=== PATIENT | female | born 1955 | race Caucasian/White ===

== ENCOUNTER → 2016-05-30 | Outpatient (CLI) | payer OTHER, MEDICARE ==
[~2016-05-30] MED LIST: ANT25 PO; CHOL1000 PO; CHOLTAB3 PO; CRD200 PO; CYAN100020 PO; DICL-201 PO; ESTR0.752 PO; GABA-112 PO; HYDR-5688 PO; IMD2X PO; INSDGIPEN SC; INSU32MI13 SQ; LACTCAP3 PO; LEVO75TA5 PO; LPR100 PO; LSN5 PO; METF500T5 PO; NVLGI/PEN SQ; NVLGIPEN SC; NVLNI SC; NVLRPUC SQ; OMEG10007 PO; POTA99TA PO; PRLSR20 PO; PRM/45 PO; SERT50TA PO; TIMO10TA2 PO; TRAM-10 PO; TRAZ100T29 PO; VITA400C15 PO
== END | disposition home or self-care (01) ==
LOC: C.PAPS 11:40
PROVIDERS: ATTEND Obstetrics & Gynecology
DX: Z01.419 Encounter for gynecological examination (general) (routine) without abnormal findings (principal)

== ENCOUNTER → 2016-06-27 | Outpatient (CLI) | payer OTHER, MEDICARE ==
--- NOTE | 2016-07-07 14:00 | MAMMOGRAPHY REPORT ---
THIS REPORT HAS BEEN AMENDED. BILATERAL DIGITAL SCREENING MAMMOGRAM TOMOSYNTHESIS WITH CAD: 06/27/2016 CLINICAL HISTORY: Routine screening examination. TECHNIQUE: Bilateral breast tomosynthesis in addition to standard 2D mammography was performed. Curr ent study was also evaluated with a Computer Aided Detection (CAD) system. COMPARISON: No prior exams were available for comparison. BREAST COMPOSITION: There are scattered areas of fibroglandular density in both breasts. FINDINGS: There is a 4.3 mm focal asymmetry in the 6:00 posterior right breast, and a 5.8 mm lobula jewell mass in the upper outer middle one third of the left breast, for which comparison to prior outsi de mammograms is needed to assess stability. If the outside exams are not obtained in a timely jacques er, additional spot compression tomosynthesis HD views and possibly ultrasound are recommended for f urther characterization. No other suspicious mass, architectural distortion or cluster of microcalcifications is seen bilater ally. IMPRESSION: ACR BI-RADS CATEGORY 0: INCOMPLETE EVALUATION: NEED ADDITIONAL IMAGING EVALUATION The 4.3 mm focal asymmetry in the 6:00 right breast and 5.8 mm lobulated mass in the upper outer lef t breast need comparison to prior outside mammograms. If they are not obtained in a timely manner, additional imaging evaluation is needed. The patient will be called to schedule an appointment. Approximately 10% of breast cancers are not detected with mammography. A negative mammographic repor t should not delay biopsy if a clinically suggestive mass is present. Pamela Beal M.D. ay/:07/07/2016 08:36:06 [employer] Project Manager: Ashley POPE(R)(M), [facility] letter sent: Need Priors 0 BI-RADS Code: ACR BI-RADS Category 0: Incomplete Evaluation: Need Additional Imaging Evaluation AMENDMENT: 07/09/2016 Pamela Beal M.D. Prior outside mammograms from [facility] dated 06/04/2012, 06/06/2013 and 06/09/2014 became available for review. The 4.3 mm asymmetry in the 6:00 right breast appears very similar to the and 06/06/2013 exams. With 2 years of stability this is considered benign. The 5 mm circu mscribed lobulated mass in the upper outer middle one third of the left breast has been present dati ng back to at least 06/04/2012, also considered benign. No new suspicious mass, focal area of archi tectural distortion, developing asymmetry or suspicious calcifications are seen bilaterally. Recomm end follow-up in 1 year for next annual screening mammogram. Amended BI-RADS: ACR BI-RADS Category 2: Benign letter sent: Normal 04/28
== END | disposition home or self-care (01) ==
LOC: C.MAMM 14:14
PROVIDERS: ATTEND Obstetrics & Gynecology
DX: Z12.31 Encounter for screening mammogram for malignant neoplasm of breast (principal); N64.89 Other specified disorders of breast; N63 Unspecified lump in breast

== ENCOUNTER → 2016-08-11 | Outpatient (CLI) | payer OTHER, MEDICARE ==
[2016-08-11 12:33] LABS: BASO % 0.6 %; BASO ABS # 0.04 K/uL (0-0.2); COMPLETE YES; EOS % 5.4 %; HEMATOCRIT 35.7 % (37-47); IG% 0.3 %; LYMPH % 34.9 %; LYMPH ABS # 2.34 K/uL (1.2-3.4); MEAN CELL VOLUME 88.8 fL (80-100); MEAN CORPUSCULAR HEMOGLOBIN 28.1 pg (25-34); MEAN CORPUSCULAR HGB CONC 31.7 g/dl (32-36); MEAN PLATELET VOLUME 10.8 fL (7.4-10.4); MONO % 7.5 %; NEUT % 51.3 %; PLATELET COUNT 223 K/uL (130-400); RED BLOOD COUNT 4.02 M/uL (4.2-5.4)
[2016-08-11 12:48] LABS: URINE APPEARANCE CLOUDY (CLEAR); URINE BILIRUBIN NEG (NEG); URINE COLOR DK YELLOW; URINE EPITHELIAL CELL AUTO >30 /lpf (0-5); URINE NITRITE POS (NEG); URINE SPECIFIC GRAVITY 1.023 (1.000-1.030); UROBILINOGEN NEG (NEG); ZZUR CULT IF INDIC CLEAN CATCH YES
[2016-08-11 12:52] LABS: MANUAL MICROSCOPIC REQUIRED? NO; REVIEW REQ? YES
== END | disposition home or self-care (01) ==
LOC: C.LABPBG 10:38
PROVIDERS: ATTEND Physician Assistant
DX: R39.9 Unspecified symptoms and signs involving the genitourinary system (principal); E03.9 Hypothyroidism, unspecified; N39.0 Urinary tract infection, site not specified

== ENCOUNTER → 2016-09-30 | Outpatient (CLI) | payer OTHER, MEDICARE ==
--- NOTE | 2016-09-30 11:19 | DIAGNOSTIC IMAGING REPORT ---
L-SPINE MIN 4 VIEWS ROUTINE CLINICAL HISTORY: Chronic low back pain radiating into both lower extremities. Flank pain COMPARISON: None FINDINGS: Alignment of the lumbar spine is anatomic. Vertebral body heights are maintained. There is moderate disc space narrowing with osteophytosis at L2-L3. There are cholecystectomy clips. There is no fracture or suspicious lesion. There is mild to moderate multilevel facet arthrosis. IMPRESSION: 1. No lumbar spine fracture or subluxation. 2. [id number] multilevel degenerative disc disease, most pronounced at L2-L3. Electronically signed by: Solitario Bentley M.D. 09/30/2016 11:18 AM Dictated Date/Time: 09/30/2016 11:16 AM
--- NOTE | 2016-09-30 12:25 | DIAGNOSTIC IMAGING REPORT ---
RENAL ULTRASOUND CLINICAL HISTORY: Flank pain. COMPARISON STUDY: CT of the abdomen and pelvis June 28, 2013 and renal ultrasound July 06, 2013. TECHNIQUE: Sonography of the kidneys and the urinary bladder was performed. FINDINGS: Increased hepatic echogenicity reflects fatty infiltration. There is no hydronephrosis. The right kidney measures 10.1 cm in maximal dimension and the left measures 10 cm. No renal masses or calculi are identified. There is a 1.1 cm cyst within lower pole of the right kidney. Neither ureteral jet was identified. IMPRESSION: 1. No hydronephrosis. 2. 1.1 cm right renal cyst. Otherwise, normal sonographic appearance of the kidneys. 3. Fatty liver. Electronically signed by: Solitario Bentley M.D. 09/30/2016 12:24 PM Dictated Date/Time: 09/30/2016 12:21 PM
== END | disposition home or self-care (01) ==
LOC: C.ULTR 10:46
PROVIDERS: ATTEND Physician Assistant
DX: R10.9 Unspecified abdominal pain (principal)

== ENCOUNTER → 2016-11-07 | Outpatient (CLI) | payer OTHER, MEDICARE ==
[2016-11-07 12:41] LABS: BASO % 0.8 %; BASO ABS # 0.04 K/uL (0-0.2); COMPLETE YES; EOS % 4.9 %; HEMATOCRIT 35.2 % (37-47); IG% 0.2 %; LYMPH ABS # 1.75 K/uL (1.2-3.4); MEAN CELL VOLUME 87.6 fL (80-100); MEAN CORPUSCULAR HEMOGLOBIN 27.9 pg (25-34); MEAN CORPUSCULAR HGB CONC 31.8 g/dl (32-36); MEAN PLATELET VOLUME 10.7 fL (7.4-10.4); MONO % 7.6 %; NEUT % 52.5 %; PLATELET COUNT 168 K/uL (130-400); RED BLOOD COUNT 4.02 M/uL (4.2-5.4); WHITE BLOOD COUNT 5.14 K/uL (4.8-10.8)
== END | disposition home or self-care (01) ==
LOC: C.LABPBG 08:19
PROVIDERS: ATTEND Internal Medicine Hematology & Oncology
DX: D64.9 Anemia, unspecified (principal)

== ENCOUNTER → 2016-11-17 | Outpatient (CLI) | payer OTHER, MEDICARE | END | disposition home or self-care (01) | LOC: C.LABPBG 11:17 | PROVIDERS: ATTEND Internal Medicine | DX: Z11.59 Encounter for screening for other viral diseases (principal) ==

== ENCOUNTER → 2017-01-08 | Outpatient (CLI) | payer OTHER, MEDICARE | END | disposition home or self-care (01) | LOC: C.LABBC 11:48 | PROVIDERS: ATTEND Psychiatry & Neurology Neurology | DX: R41.89 Other symptoms and signs involving cognitive functions and awareness (principal); R26.89 Other abnormalities of gait and mobility ==

== ENCOUNTER → 2017-01-09 | Outpatient (CLI) | payer OTHER, MEDICARE ==
--- NOTE | 2017-01-09 17:26 | DIAGNOSTIC IMAGING REPORT ---
MRI OF THE BRAIN WITHOUT CONTRAST CLINICAL HISTORY: R41.89 Cognitive jenooxhV70.89 poor balance, dizziness. COMPARISON STUDY: Noncontrast head CT dated 06/17/2015 FINDINGS: Sagittal T1, axial diffusion, proton density and T2 weighted axial, coronal FLAIR, and axial T1-weighted images were acquired. No intra or extra-axial mass lesions are visualized Axial diffusion-weighted images reveal no evidence of acute or subacute infarction. There is no evidence of ventricular dilatation. Proton density T2-weighted and FLAIR images reveal a few tiny foci of increased T2 signal within the white matter, likely on a small vessel basis. There are no abnormal flow voids. Minor inflammatory changes within the mastoids are suspected. IMPRESSION: 1. No acute intracranial findings 2. No evidence of intracranial mass 3. No evidence of acute or subacute infarction 4. No evidence of hydrocephalus Electronically signed by: Dmitri Quinteros M.D. 01/09/2017 5:25 PM Dictated Date/Time: 01/09/2017 5:23 PM
== END | disposition home or self-care (01) ==
LOC: C.MRIBC 16:36
PROVIDERS: ATTEND Psychiatry & Neurology Neurology
DX: R41.89 Other symptoms and signs involving cognitive functions and awareness (principal); R26.89 Other abnormalities of gait and mobility

== ENCOUNTER → 2017-02-06 | Outpatient (CLI) | payer OTHER, MEDICARE ==
--- NOTE | 2017-02-06 12:36 | DIAGNOSTIC IMAGING REPORT ---
AP PELVIS AND RIGHT HIP 3 VIEWS CLINICAL HISTORY: M25.551 Hip pain, right COMPARISON STUDY: No previous studies for comparison. FINDINGS: No fractures are visualized. The joint space appears well-preserved for age. There are no erosive or destructive changes. IMPRESSION: Normal conventional radiographic evaluation of the right hip for age Electronically signed by: Dmitri Quinteros M.D. 02/06/2017 12:35 PM Dictated Date/Time: 02/06/2017 12:34 PM
[2017-02-06 14:05] LABS: URINE APPEARANCE CLEAR (CLEAR); URINE BILIRUBIN NEG (NEG); URINE COLOR YELLOW; URINE EPITHELIAL CELL AUTO 20-30 /lpf (0-5); URINE NITRITE NEG (NEG); URINE SPECIFIC GRAVITY 1.016 (1.000-1.030); UROBILINOGEN NEG (NEG)
[2017-02-06 14:07] LABS: MANUAL MICROSCOPIC REQUIRED? NO; REVIEW REQ? NO
== END | disposition home or self-care (01) ==
LOC: C.RADBC 12:03
PROVIDERS: ATTEND Physician Assistant
DX: M25.551 Pain in right hip (principal); R10.9 Unspecified abdominal pain

== ENCOUNTER → 2017-05-15 | Outpatient (CLI) | payer OTHER, MEDICARE ==
[2017-05-15 12:26] LABS: BASO % 0.9 %; BASO ABS # 0.05 K/uL (0-0.2); EOS ABS # 0.29 K/uL (0-0.5); HEMATOCRIT 37.2 % (37-47); IG# 0.01 K/uL (0.00-0.02); LYMPH % 35.5 %; LYMPH ABS # 2.07 K/uL (1.2-3.4); MEAN CELL VOLUME 88.4 fL (80-100); MEAN CORPUSCULAR HEMOGLOBIN 28.5 pg (25-34); MEAN CORPUSCULAR HGB CONC 32.3 g/dl (32-36); MEAN PLATELET VOLUME 11.6 fL (7.4-10.4); MONO % 6.2 %; MONO ABS # 0.36 K/uL (0.11-0.59); NEUT % 52.2 %; NEUT ABS # 3.05 K/uL (1.4-6.5); PLATELET COUNT 184 K/uL (130-400); RED CELL DISTRIBUTION WIDTH CV 15.7 % (11.5-14.5); WHITE BLOOD COUNT 5.83 K/uL (4.8-10.8)
[2017-05-15 12:41] LABS: RETIC COUNT % 1.3 % (0.5-2.0)
[2017-05-15 12:42] LABS: HEMOGLOBIN A1C 5.5 % (4.5-5.6)
[2017-05-15 15:39] LABS: ALBUMIN 3.8 gm/dl (3.4-5.0); ALT/SGPT 22 U/L (12-78); BLOOD UREA NITROGEN 18 mg/dl (7-18); CALCIUM 9.6 mg/dl (8.5-10.1); CARBON DIOXIDE 23 mmol/L (21-32); CREATININE 0.79 mg/dl (0.60-1.20); GLUCOSE 112 mg/dl (70-99); POTASSIUM 4.1 mmol/L (3.5-5.1); SODIUM 140 mmol/L (136-145)
[2017-05-15 15:52] LABS: ALKALINE PHOSPHATASE 54 U/L (45-117); AST/SGOT 16 U/L (15-37); CHOLESTEROL 206 mg/dl (0-200); LDL CHOLESTEROL CALCULATED 108 mg/dl; TOTAL PROTEIN 6.7 gm/dl (6.4-8.2)
== END | disposition home or self-care (01) ==
LOC: C.LABPBG 10:03
PROVIDERS: ATTEND Internal Medicine Hematology & Oncology
DX: M15.9 Polyosteoarthritis, unspecified (principal); D64.9 Anemia, unspecified

== ENCOUNTER → 2017-06-12 | Outpatient (CLI) | payer OTHER, MEDICARE ==
[2017-06-12 15:35] LABS: BASO % 0.1 %; BASO ABS # 0.01 K/uL (0-0.2); HEMOGLOBIN 11.9 g/dL (12.0-16.0); IG# 0.06 K/uL (0.00-0.02); LYMPH % 10.9 %; LYMPH ABS # 1.46 K/uL (1.2-3.4); MEAN CELL VOLUME 86.1 fL (80-100); MEAN CORPUSCULAR HEMOGLOBIN 28.5 pg (25-34); MEAN CORPUSCULAR HGB CONC 33.1 g/dl (32-36); MEAN PLATELET VOLUME 10.8 fL (7.4-10.4); MONO % 6.1 %; MONO ABS # 0.82 K/uL (0.11-0.59); NEUT % 82.5 %; NEUT ABS # 11.08 K/uL (1.4-6.5); PLATELET COUNT 231 K/uL (130-400); RED CELL DISTRIBUTION WIDTH CV 15.3 % (11.5-14.5); RED CELL DISTRIBUTION WIDTH SD 48.2 fL (36.4-46.3); WHITE BLOOD COUNT 13.43 K/uL (4.8-10.8)
== END | disposition home or self-care (01) ==
LOC: C.LAB1850 14:12
PROVIDERS: ATTEND Obstetrics & Gynecology
DX: R10.2 Pelvic and perineal pain (principal)

== ENCOUNTER → 2017-07-09 | Outpatient (CLI) | payer OTHER, MEDICARE | END | disposition home or self-care (01) | LOC: C.LABSPEC 15:38 | PROVIDERS: ATTEND Obstetrics & Gynecology | DX: R39.9 Unspecified symptoms and signs involving the genitourinary system (principal) ==

== ENCOUNTER → 2017-07-13 | Outpatient (CLI) | payer OTHER, MEDICARE ==
--- NOTE | 2017-07-14 14:58 | MAMMOGRAPHY REPORT ---
BILATERAL DIGITAL SCREENING MAMMOGRAM TOMOSYNTHESIS WITH CAD: 07/13/2017 CLINICAL HISTORY: Routine screening. Patient has no complaints. TECHNIQUE: Breast tomosynthesis in addition to standard 2D mammography was performed. Current study was also evaluated with a Computer Aided Detection (CAD) system. COMPARISON: Comparison is made to exam dated: 06/27/2016 mammogram - [facility]. A lso prior outside mammograms dated 06/09/2014, 06/06/2013, 06/04/2012. BREAST COMPOSITION: There are scattered areas of fibroglandular density in both breasts. FINDINGS: No suspicious masses, calcifications, or areas of architectural distortion are noted in ei ther breast. There has been no significant interval change compared to prior exams. IMPRESSION: ACR BI-RADS CATEGORY 1: NEGATIVE There is no mammographic evidence of malignancy. A 1 year screening mammogram is recommended. The pa tient will receive written notification of the results. Approximately 10% of breast cancers are not detected with mammography. A negative mammographic report should not delay biopsy if a clinically suggestive mass is present. Zunilda Bowers M.D. ah/:07/13/2017 15:27:47 Sales Clerk: Dana POPE(Margarita)(M), [facility] letter sent: Normal 1/2 BI-RADS Code: ACR BI-RADS Category 1: Negative
== END | disposition home or self-care (01) ==
LOC: C.MAMM 14:45
PROVIDERS: ATTEND Obstetrics & Gynecology
DX: Z12.31 Encounter for screening mammogram for malignant neoplasm of breast (principal)

== ENCOUNTER → 2017-07-17 | Outpatient (CLI) | payer OTHER, MEDICARE ==
[~2017-07-17] MED LIST changes: +OPTIRAY 320 IV PRN
--- NOTE | 2017-07-17 12:09 | DIAGNOSTIC IMAGING REPORT ---
ABDOMEN AND PELVIS CT WITH IV AND ORAL CONTRAST CT DOSE: 408.29 mGy.cm HISTORY: D64.9 IcgarjB38.9 Flank painR10.31 Right lower quadrant abdominal pain. TECHNIQUE: Multiaxial CT images of the abdomen and pelvis were performed following the use of intravenous and oral contrast. A dose lowering technique was utilized adhering to the principles of ALARA. COMPARISON STUDY: Abdomen and pelvis CT 06/28/2013. FINDINGS: The lung bases are clear. No pneumoperitoneum. No pneumatosis. Mild hepatic steatosis. No hepatic or splenic masses. Cholecystectomy. The pancreas and adrenal glands are unremarkable. No hydronephrosis. Stable 1 cm hypodense lesion within the lower pole the right kidney. The stability favors a cyst. The bladder is not well-distended. This may account for the mild bladder wall thickening. The uterus is surgically absent. No retroperitoneal lymphadenopathy. A few colonic diverticula. No bowel wall thickening or obstruction. The appendix is surgically absent. Small appendiceal stump remains. IMPRESSION: 1. Mild bladder wall thickening which may be due to underdistention. Recommend correlation with urinalysis. 2. No bowel wall thickening or obstruction. 3. Hepatic steatosis. 4. No renal or ureteral calculi. No hydronephrosis. 5. Postoperative changes as described above. 6. Sigmoid diverticulosis. Electronically signed by: Sabas Kilgore M.D. 07/17/2017 12:08 PM Dictated Date/Time: 07/17/2017 12:00 PM
== END | disposition home or self-care (01) ==
LOC: C.CTS 11:07
PROVIDERS: ATTEND Internal Medicine
DX: D64.9 Anemia, unspecified (principal); R10.31 Right lower quadrant pain; R10.9 Unspecified abdominal pain; K76.0 Fatty (change of) liver, not elsewhere classified; K57.30 Diverticulosis of large intestine without perforation or abscess without bleeding

== ENCOUNTER → 2017-07-20 | Outpatient (CLI) | payer OTHER, MEDICARE ==
[~2017-07-20] MED LIST changes: -OPTIRAY 320 IV PRN
== END | disposition home or self-care (01) ==
LOC: C.LABPBG 08:27
PROVIDERS: ATTEND Internal Medicine
DX: R39.9 Unspecified symptoms and signs involving the genitourinary system (principal)

== ENCOUNTER → 2017-08-10 | Outpatient (CLI) | payer OTHER, MEDICARE | END | disposition home or self-care (01) | LOC: C.LAB1850 09:07 | PROVIDERS: ATTEND Internal Medicine | DX: R39.9 Unspecified symptoms and signs involving the genitourinary system (principal); N39.0 Urinary tract infection, site not specified ==

== ENCOUNTER 2017-08-27 13:05 | Emergency (ER) | payer OTHER, MEDICARE ==
[~2017-08-27] VITALS: Ht 152.4 cm; Wt 71.8 kg
[2017-08-27 13:12] VITALS: Ht 152.4 cm; Wt 71.8 kg
[2017-08-27] MEDS ORDERED: ONDANSETRON INJ 2 MG/ML 2 ML VIAL IV STA (14:14)
[2017-08-27] MEDS ORDERED: MoRPHine SULFATE 4 MG/ML 1 ML CARP\\VIAL IV STA ×2 (14:14→15:28)
[2017-08-27] MEDS ORDERED: SODIUM CHLORIDE 0.9% 1000ML 1,000 ML IV STA (14:14)
[2017-08-27] MEDS ORDERED: OPTIRAY 320 IV PRN (14:30)
[2017-08-27 15:04] LABS: BASO % 0.5 %; BASO ABS # 0.04 K/uL (0-0.2); EOS % 3.4 %; EOS ABS # 0.26 K/uL (0-0.5); HEMATOCRIT 37.2 % (37-47); HEMOGLOBIN 12.1 g/dL (12.0-16.0); IG# 0.01 K/uL (0.00-0.02); LYMPH % 35.6 %; LYMPH ABS # 2.72 K/uL (1.2-3.4); MEAN CELL VOLUME 86.3 fL (80-100); MEAN CORPUSCULAR HEMOGLOBIN 28.1 pg (25-34); MEAN CORPUSCULAR HGB CONC 32.5 g/dl (32-36); MEAN PLATELET VOLUME 10.5 fL (7.4-10.4); MONO % 7.6 %; MONO ABS # 0.58 K/uL (0.11-0.59); NEUT % 52.8 %; NEUT ABS # 4.02 K/uL (1.4-6.5); PLATELET COUNT 215 K/uL (130-400); RED CELL DISTRIBUTION WIDTH CV 15.1 % (11.5-14.5); RED CELL DISTRIBUTION WIDTH SD 48.2 fL (36.4-46.3); WHITE BLOOD COUNT 7.63 K/uL (4.8-10.8)
[2017-08-27] MEDS ORDERED: DONE5TAB26 PO (15:11)
[2017-08-27] MEDS ORDERED: COCO1OIL2 PO (15:11)
[2017-08-27] MEDS ORDERED: PRAV20TA PO (15:11)
[2017-08-27] MEDS ORDERED: BIOT1TAB5 PO (15:11)
[2017-08-27] MEDS ORDERED: CINN1CAP2 PO (15:11)
[2017-08-27] MEDS ORDERED: LSN5 PO (15:17)
[2017-08-27] MEDS ORDERED: IMD/2 PO (15:18)
[2017-08-27] MEDS ORDERED: MECL1TAB42 PO (15:20)
[2017-08-27] MEDS ORDERED: METF500T5 PO (15:21)
[2017-08-27 15:22] LABS: ALBUMIN 4.1 gm/dl (3.4-5.0); CALCIUM 9.8 mg/dl (8.5-10.1); CREATININE 0.92 mg/dl (0.60-1.20); POTASSIUM 4.1 mmol/L (3.5-5.1)
[2017-08-27 15:24] LABS: TOTAL PROTEIN 7.5 gm/dl (6.4-8.2)
[2017-08-27] MEDS ORDERED: METO100T14 PO (15:24)
--- NOTE | 2017-08-27 16:34 | DIAGNOSTIC IMAGING REPORT ---
CT SCAN OF THE ABDOMEN AND PELVIS WITH IV CONTRAST CLINICAL HISTORY: Right-sided abdominal pain. COMPARISON STUDY: Abdominal CT dated 07/17/2017. TECHNIQUE: Following the IV administration of 94 cc of Optiray 320, CT scan of the abdomen and pelvis is performed from the lung bases to the proximal femora. Images are reviewed in the axial, sagittal, and coronal planes. IV contrast was administered without complication. A dose lowering technique was utilized adhering to the principles of ALARA. CT DOSE: 419.37 mGy.cm FINDINGS: Lung bases: The heart is normal in size and without pericardial effusion. There is a fat-containing Bochdalek hernia at the left lung base. The lung bases are otherwise clear. Liver: The contrast-enhanced liver is enlarged, measuring 20.6 cm in length. The liver demonstrates diffusely diminished attenuation consistent with hepatic steatosis. There is minimal central intrahepatic biliary ductal dilatation. The hepatic veins and portal veins are patent. Gallbladder: Surgically absent noting clips in the gallbladder fossa. Spleen: Normal in size and attenuation. Pancreas: Moderately atrophic and grossly unremarkable. Adrenal glands: Unremarkable. Kidneys: The contrast enhanced kidneys demonstrate cortical atrophy and are without hydronephrosis. A 10 mm cyst is noted in the right lower pole. The kidneys enhance symmetrically. Abdominal vasculature: The abdominal aorta is normal in course and caliber noting mild atherosclerotic calcification. Bowel: There is mild colonic diverticulosis without CT evidence of acute diverticulitis. No bowel obstruction is identified. The appendix is not identified and reported surgically absent. Peritoneum: There is no intraperitoneal free air or abdominal ascites. There is a fat-containing umbilical hernia. Lymphadenopathy: None. Pelvic viscera: The bladder is normal as visualized. The uterus is surgically absent. No adnexal lesion is seen. Skeletal structures: The skeletal structures are osteopenic. There is mild lumbosacral spondylosis. No lytic or blastic lesions are seen. IMPRESSION: 1. There are no acute infectious or inflammatory findings in the abdomen or pelvis. 2. Mild colonic diverticulosis without CT evidence of acute diverticulitis. 3. Hepatomegaly and hepatic steatosis. 4. Additional findings as above. Electronically signed by: Jaspal Torres M.D. 08/27/2017 4:32 PM Dictated Date/Time: 08/27/2017 4:28 PM
[2017-08-27 17:07] VITALS: BP 128/69; PULSE 66; TEMP 36.9; O2SAT 97
--- NOTE | 2017-08-27 21:00 | EMERGENCY ROOM VISIT NOTE ---
ED Visit Note First contact with patient: 13:52 Chief Complaint: Right sided abdominal pain. History of Present Illness: Ms. Cuellar is a 62 year-old white female who ambulates into the ED accompanied by her complaining of mid quadrant right sided quadrant abdominal pain. Historically patient reports she has no gastrointestinal disorders but does report she is status post appendectomy, cholecystectomy and hysterectomy. Patient reports she has been having ongoing intermittent mid left quadrant abdominal pain for the last 2-3 months. She has been seen by gastroenterology and is currently scheduled for a colonoscopy next Thursday. Patient reports her current bout of pain started approximately 3-4 days ago. She reports this is more severe than it has been previously and is more persistent. Currently she is describing her pain as a sharp sensation in the mid lateral aspect of the right side of the abdomen. She rates her discomfort 8 /10. Her pain is radiation towards the right flank area. She has not identified any aggravating or alleviating factors related to the pain. A onset of quadrant abdominal pain that started approximately hours ago. Since that time the pain has been . The pain is currently described as . The pain is nonradiating. Associated with her pain she reports that she has been feeling intermittently nauseated but has not vomited and she has had one episode of watery stools today. She also report intermittently she has been difficulty starting her urine stream. She reports that she has taken ibuprofen without relief of her discomfort. Patient denies fevers, chills, sweats, skin eruptions, skin color changes, upper respiratory tract symptoms, shortness of breath, chest pain, constipation , rectal bleeding, black/tarry stools, urinary symptoms, hematuria, vaginal bleeding, vaginal discharge, back/flank pain. Review of Systems: As noted above in history of present illness. All body systems were reviewed and found to be negative as noted above. Past Medical History: As previously noted and borderline diabetes, hypertension , vertigo and status post unspecified hand and foot surgery and sinus surgeries. Current Medications: Medications Dose Route/Sig Max Daily Dose Days Date Category Lopressor (Metoprolol Tartrate) 100 Mg Tab 100 Mg PO BID 08/27/17 Reported Meclizine Hcl 25 Mg Tab 1 Tab PO Q8H PRN 08/27/17 Reported Imodium (Loperamide HCl) 2 Mg Cap 2 Mg PO Q6H PRN 08/27/17 Reported Lisinopril 5 Mg Tab 5 Mg PO QAM 08/27/17 Reported Pravachol (Pravastatin Sodium) 20 Mg Tab 80 Mg PO HS 08/27/17 Reported Donepezil Hcl (Donepezil Hydrochloride) 5 Mg Tab 1 Tab PO HS 08/27/17 Reported Coconut Oil (Coconut Oil (Bulk)) 1 Oil Oil 1,000 Mg PO BID 08/27/17 Reported Cinnamon 500 Mg Cap 2 Cap PO QAM 08/27/17 Reported Biotin 1,000 Mcg Tab 1 Tab PO QAM 08/27/17 Reported [place]-3 (Fish Oil) 1 Ea Cap 1 Cap PO QAM 06/16/15 Reported Vitamin E (ru-Mtaoo-Rshyxlofxt Acetate) 400 Inter.unit Cap 400 Inter.unit PO QAM 06/15/15 Reported Vitamin D3 (Cholecalciferol) 1,000 Unit Tab 1 Tab PO QAM 06/15/15 Reported Vitamin D (Ergocalciferol) 400 Inter.unit Tab 400 Inter.unit PO QAM 06/15/15 Reported Vitamin B12 (Cyanocobalamin) 1,000 Mcg Tab 1 Tab PO QAM 06/15/15 Reported Trazodone (Trazodone HCl) 100 Mg Tab 100 Mg PO HS 06/15/15 Reported Zoloft (Sertraline HCl) 50 Mg Tab 50 Mg PO HS 06/15/15 Reported Potassium 99 Mg Tab 99 Mg PO QAM 06/15/15 Reported Levothyroxine Sodium 75 Mcg Tab 75 Mcg PO DAILY 06/15/15 Reported Neurontin (Gabapentin) 100 Mg Cap 100 Mg PO TID 06/15/15 Reported Allergies to Medications: Amoxicillin, cefixime, clavulanic acid sodium benzoate. Social History: Patient is not currently employed; she feels safe in her home environment; she denies tobacco use. Physical Examination: Vital Signs: Date Time Temp Pulse Resp B/P (MAP) Pulse Ox O2 Delivery O2 Flow Rate FiO2 08/27/17 17:07 36.9 66 18 128/69 97 08/27/17 15:39 67 18 123/59 97 Room Air 08/27/17 14:39 62 08/27/17 13:12 36.9 71 18 125/77 98 Room Air GENERAL: 62-year-old female in mild distress due to pain, nontoxic-appearing, afebrile and hemodynamically stable. NEUROLOGICAL: Awake, alert and oriented to person, place and time. Answering questions appropriately and following commands. Normal gait. Good hand eye coordination. SKIN: Warm, dry and pink. No soft tissue eruptions or trauma noted. HEENT: Atraumatic and normocephalic. PERRLA Sclera white and conjunctiva pink. Oral cavity moist and pink. Pharynx is nonerythematous or edematous. Speech normal. No lymphadenopathy. Trachea midline. No jugular venous distention. BACK: No tenderness over the bony spine. Mild right-sided CVA tenderness. THORAX: Lungs sounds are clear to auscultation and equal bilaterally with symmetrical chest wall. No wheezing, rales or rhonchi. No crepitus, tenderness , subcutaneous air or deformities noted. HEART: Regular rate and rhythm. No gallops, rubs or murmurs are appreciated. ABDOMEN: Flat and soft with mild lateral mid quadrant tenderness. Positive bowel sounds in all quadrants. No guarding, rigidity or organomegaly. EXTREMITIES: Moves all extremities well on command and with purpose. All distal neurovascular statuses are intact and equal bilaterally. ED Course: Patient is assessed as noted above. Patient's medication list was reviewed. Laboratory Testing: Test 08/27/17 14:45 Range/Units White Blood Count 7.63 4.8-10.8 K/uL Red Blood Count 4.31 4.2-5.4 M/uL Hemoglobin 12.1 12.0-16.0 g/dL Hematocrit 37.2 37-47 % Mean Corpuscular Volume 86.3 80-100 fL Mean Corpuscular Hemoglobin 28.1 25-34 pg Mean Corpuscular Hemoglobin Concent 32.5 32-36 g/dl Platelet Count 215 130-400 K/uL Mean Platelet Volume 10.5 7.4-10.4 fL Neutrophils (%) (Auto) 52.8 % Lymphocytes (%) (Auto) 35.6 % Monocytes (%) (Auto) 7.6 % Eosinophils (%) (Auto) 3.4 % Basophils (%) (Auto) 0.5 % Neutrophils # (Auto) 4.02 1.4-6.5 K/uL Lymphocytes # (Auto) 2.72 1.2-3.4 K/uL Monocytes # (Auto) 0.58 0.11-0.59 K/uL Eosinophils # (Auto) 0.26 0-0.5 K/uL Basophils # (Auto) 0.04 0-0.2 K/uL RDW Standard Deviation 48.2 36.4-46.3 fL RDW Coefficient of Variation 15.1 11.5-14.5 % Immature Granulocyte % (Auto) 0.1 % Immature Granulocyte # (Auto) 0.01 0.00-0.02 K/uL Urine Color YELLOW Urine Appearance CLEAR CLEAR Urine pH 5.0 4.5-7.5 Urine Specific Dent 1.020 1.000-1.030 Urine Protein NEG NEG Urine Glucose (UA) NEG NEG Urine Ketones NEG NEG Urine Occult Blood NEG NEG Urine Nitrite NEG NEG Urine Bilirubin NEG NEG Urine Urobilinogen NEG NEG Urine Leukocyte Esterase SMALL NEG Urine WBC (Auto) 5-10 0-5 /hpf Urine RBC (Auto) 0-4 0-4 /hpf Urine Hyaline Casts (Auto) 1-5 0-5 /lpf Urine Epithelial Cells (Auto) >30 0-5 /lpf Urine Bacteria (Auto) NEG NEG Sodium Level 135 136-145 mmol/L Potassium Level 4.1 3.5-5.1 mmol/L Chloride Level 105 98-107 mmol/L Carbon Dioxide Level 25 21-32 mmol/L Anion Gap 5.0 3-11 mmol/L Blood Urea Nitrogen 20 7-18 mg/dl Creatinine 0.92 0.60-1.20 mg/dl Est Creatinine Clear Calc Drug Dose 54.6 ml/min Estimated GFR () 76.3 Estimated GFR (Non- 65.8 BUN/Creatinine Ratio 21.5 10-20 Random Glucose 81 70-99 mg/dl Calcium Level 9.8 8.5-10.1 mg/dl Total Bilirubin 0.7 0.2-1 mg/dl Direct Bilirubin 0.1 0-0.2 mg/dl Aspartate Amino Transf (AST/SGOT) 21 15-37 U/L Alanine Aminotransferase (ALT/SGPT) 22 12-78 U/L Alkaline Phosphatase 70 45-117 U/L Total Protein 7.5 6.4-8.2 gm/dl Albumin 4.1 3.4-5.0 gm/dl Lipase 136 73-393 U/L IV Contrast Abdominal/Pelvic CT: Was reviewed by myself and read by the radiologist showing no acute infectious or inflammatory changes within the abdomen or pelvis. Mild colonic diverticulosis without evidence of diverticulitis, hepatomegaly and hepatic steatosis, fat-containing umbilical hernia and 10 mm cyst in the right lower pole of the kidney without hydronephrosis. Patient was hydrated with normal saline and received a total of 8 mg of morphine IV and 4 mg of Zofran. Patient was reassessed multiple times during her stay in the emergency department. Patient's case was reviewed with Dr. Springer; we agreed on diagnostic approach, treatment, disposition and plan. Patient was educated about today's findings and instructed on her treatment plan ; she verbalized understanding and agreement with this plan. Clinical Impression: Right-sided abdominal pain. Decision-Making: Initially my differential diagnosis I considered bowel obstruction, perforated viscus, pancreatitis, hepatitis, kidney stone, pyelonephritis, musculoskeletal disorder and other causes. Disposition: Patient discharged home in stable condition accompanied by her ; prior to departure she was reassessed and continued to rate her discomfort 8/10. Plan: Patient was encouraged alternate ibuprofen and acetaminophen every 3 hours as needed for pain. Patient was encouraged to stay well-hydrated with increased clear fluids. Patient was encouraged to keep her upcoming appointment for colonoscopy. Patient was encouraged to call her family physician and request follow-up care and treatment. Patient was encouraged return the ED for worsening pain, fevers, vomiting, bloody stools or any new/concerning symptoms.
== END 2017-08-27 17:08 | disposition home or self-care (01) ==
LOC: C.EDB 13:07 → C.EDC 17:08
DX: R10.9 Unspecified abdominal pain (principal); I10 Essential (primary) hypertension; Z79.899 Other long term (current) drug therapy; Z88.1 Allergy status to other antibiotic agents; Z88.8 Allergy status to other drugs, medicaments and biological substances

== ENCOUNTER 2017-09-06 20:37 | Emergency (ER) | payer OTHER, MEDICARE ==
[~2017-09-06] VITALS: Ht 152.4 cm; Wt 72.7 kg
[~2017-09-06 20:37] MED LIST changes: -ANT25 PO; +BIOT1TAB5 PO; +CINN1CAP2 PO; +COCO1OIL2 PO; -CRD200 PO; -DICL-201 PO; +DONE5TAB26 PO; -ESTR0.752 PO; -HYDR-5688 PO; +IMD/2 PO; -IMD2X PO; -INSDGIPEN SC; -INSU32MI13 SQ; -LACTCAP3 PO; -LPR100 PO; +MECL1TAB42 PO; +METO100T14 PO; -NVLGI/PEN SQ; -NVLGIPEN SC; -NVLNI SC; -NVLRPUC SQ; +PRAV20TA PO; -PRLSR20 PO; -PRM/45 PO; -TIMO10TA2 PO; -TRAM-10 PO
[2017-09-06 20:41] VITALS: TEMP 36.6; Ht 152.4 cm; Wt 72.7 kg
--- NOTE | 2017-09-06 21:00 | EMERGENCY ROOM VISIT NOTE ---
History Report prepared by Delfino: Melyssa Robledo Under the Supervision of: Dr. Arden Veronica M.D. 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 Positive chills. Negative urinary symptoms, recent trauma. She states she was here 2 weeks mine captain and notes this is similar to the pain she had when she was last at the ED. The patient reports the pain also radiates to her back. She describes her pain as constant and burning. She has tried heat and ice but nothing alleviates her symptoms. Her last bowel movement was this morning. Source of History: patient Onset: 2050 Position: other (right side) Quality: burning Timing: constant Associated Symptoms: + chills, No urinary symptoms Note: Positive pain radiating to her back. Negative recent trauma. Review of Systems See HPI for pertinent positives and negatives. A total of ten systems were reviewed and were otherwise negative. Past Medical & Surgical Medical Problems: (1) Diabetes (2) Hypertension (3) pna, vertigo Family History Diabetes mellitus Heart disease Hypertension Lung disease Social History Smoking Status: Never Smoker Alcohol Use: none Marital Status: Housing Status: lives with family Occupation Status: employed Current/Historical Medications Scheduled Biotin (Biotin), 1 TAB PO QAM Cholecalciferol (Vitamin D3), 1 TAB PO QAM Cinnamon (Cinnamon), 2 CAP PO QAM Coconut Oil (Bulk) (Coconut Oil), 1,000 MG PO BID Cyanocobalamin (Vitamin B12), 1 TAB PO QAM Donepezil HCl (Donepezil HCl), 10 MG PO HS Fish Oil ([place]-3), 1 CAP PO QAM Gabapentin (Neurontin), 200 MG PO BID Gabapentin (Gabapentin), 300 MG PO HS Levothyroxine Sodium (Levothyroxine Sodium), 75 MCG PO DAILY Lisinopril (Lisinopril), 5 MG PO QAM Metformin Hcl Er (Glucophage Er), 500 MG PO BID Metoprolol Tartrate (Lopressor) (Lopressor), 100 MG PO BID Potassium (Potassium), 99 MG PO QAM Pravastatin (Pravachol ), 80 MG PO HS Sertraline HCl (Sertraline HCl), 100 MG PO DAILY Trazodone Hcl (Trazodone), 100 MG PO HS Valacyclovir Hcl (Valtrex), 1 GM PO TID Vitamin E (E400), 400 UNITS PO DAILY Scheduled PRN Loperamide Hcl (Imodium), 2 MG PO Q6H PRN for Diarrhea Meclizine Hcl (Meclizine Hcl), 1 TAB PO Q8H PRN for VERTIGO Oxycodone Immediate Rel Tab (Roxicodone Ir), 5 MG PO Q6H PRN for Pain Allergies Coded Allergies: Amoxicillin (Verified Allergy, Intermediate, HIVES ( CAN TAKE PENICILLIN) , 09/06/17) "deathly sick", nausea/vomitting Iodinated Diagnostic Agents (Verified Allergy, Mild, Hives, rash, 09/06/17) Cefixime (Verified Allergy, Unknown, HIVES, 09/06/17) Clavulanic Acid (Verified Allergy, Unknown, HIVES ( CAN TAKE PENICILLIN), 09/06/17) "deathly sick" nausea/vomitting Sodium Benzoate (Verified Allergy, Unknown, HIVES, 09/06/17) Physical Exam Vital Signs Date Time Temp Pulse Resp B/P (MAP) Pulse Ox O2 Delivery O2 Flow Rate FiO2 09/06/17 22:40 68 16 142/88 95 Room Air 09/06/17 20:41 36.6 86 20 160/92 96 Room Air Physical Exam GENERAL: Awake, alert, well-appearing, NAD. Obese HENT: Normocephalic, atraumatic. EYES: Normal conjunctiva. Sclera non-icteric. PERRL. No anisocoria. NECK: Supple. No nuchal rigidity. FROM. RESPIRATORY: CTAB, no rhonchi, wheezing, crackles CARDIAC: RRR, no MRG ABDOMEN: Soft, NTND, BS+. 2 separate vesicular pustular lesions, patch noted, in the right lateral black and on the right lower abdomen. Negative obturators, negative psoas BACK: No CVA TTP MSK: No chest wall TTP, no LE edema NEURO: GCS 15, CN 2-12 intact, moves all 4s on command SKIN: No rash or jaundice noted. Medical Decision & Procedures Medications Administered Medications (Trade) Dose Ordered Sig/Kavita Route Start Time Stop Time Status Last Admin Dose Admin Valacyclovir HCl (Valtrex Tab) 1,000 mg NOW ONCE PO 09/06/17 21:15 09/06/17 21:16 DC 09/06/17 21:08 1,000 MG Acetaminophen (Tylenol Tab) 1,000 mg NOW STAT PO 09/06/17 21:02 09/06/17 21:03 DC 09/06/17 21:07 1,000 MG Ibuprofen (Motrin Tab) 600 mg NOW STAT PO 09/06/17 21:02 09/06/17 21:03 DC 09/06/17 21:08 600 MG Oxycodone HCl (Roxicodone Immediate Rel Tab) 5 mg NOW STAT PO 09/06/17 21:02 09/06/17 21:03 DC 09/06/17 21:09 5 MG Hydromorphone HCl (Dilaudid Inj) 0.5 mg ONE STAT IM 09/06/17 21:56 09/06/17 21:57 DC 09/06/17 22:06 0.5 MG Oxycodone HCl (Roxicodone Immediate Rel 5MG Home Pack) 1 homepack UD ONCE PO 09/06/17 23:00 09/06/17 23:01 DC 09/06/17 22:52 1 HOMEPACK Ondansetron HCl (ZOFRAN ODT 4MG Home Pack) 1 homepack UD ONCE PO 09/06/17 23:00 09/06/17 23:01 DC 09/06/17 22:52 1 HOMEPACK Valacyclovir HCl (Valtrex Tab) 1,000 mg NOW ONCE PO 09/06/17 23:00 09/06/17 23:01 DC 09/06/17 22:55 1,000 MG ED Course 2050: The patient was evaluated in room B11. A complete history and physical exam was performed. 2101: Ordered Oxycodone HCl 5 mg PO, Ibuprofen 600 mg PO, Tylenol Tab 1000 mg PO 2114: Ordered Valtrex Tab 1000 mg PO 2144: I reviewed the PDMP. No recent controlled substances. 2155: Ordered Dilaudid Inj 0.5 mg IM 2241: I reevaluated the patient. Discussed results and discharge instructions: She verbalized understanding and agreement. The patient is ready for discharge. 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 Positive chills. Negative urinary symptoms, recent trauma. Differential diagnosis: Etiologies such as shingles, appendicitis, diverticulitis, PUD, biliary pathology, UTI, pancreatitis, obstruction, mesenteric ischemia, aortic pathology , infections, inflammatory bowel disease, renal colic, as well as others were entertained. Patient was seen and evaluated the bedside. The patient had been complaining of some right-sided lower abdominal discomfort that radiated to her back. Patient was recently seen approximately 10 days prior with very similar symptoms although that is more severe. Patient does complain of a burning discomfort. On exam the patient has a fairly unimpressive abdominal exam the patient does have vesicles seen at the back as well as the right lower abdomen. This may be consistent with shingles especially given the burning neuropathic type pain as well as discomfort that she is having. We did discuss possibly obtaining blood work or imaging however given that the patient has had very similar symptoms only that they are slightly more severe with a fairly negative workup and now has vesicles we decided to treat with medications. Upon reassessment the patient was feeling improved. The patient did receive the first dose of Valtrex. Patient was given Valtrex as well as additional pain medication at home was told to continue [id number] type medications also. Patient was given strict follow-up, discharge, and return precautions. All questions were answered. Patient was deemed suitable for outpatient follow- up at this time. Patient agreed with the plan of care and was safely discharged home. [place] Drug Monitoring Program Search Results: patient reviewed within database, no issues identified Medication Reconcilliation Current Medication List: was personally reviewed by me Blood Pressure Screening Patient's blood pressure: Elevated blood pressure Blood pressure disposition: Elevated BP felt to be situational Impression Primary Impression: Shingles rash Scribe Attestation The scribe's documentation has been prepared under my direction and personally reviewed by me in its entirety. I confirm that the note above accurately reflects all work, treatment, procedures, and medical decision making performed by me. Departure Information Dispostion Home / Self-Care Prescriptions Valacyclovir Hcl (VALTREX) 1 Gm Tab 1 GM PO TID for 7 Days, #21 TAB Prov: Arden Veronica M.D. 09/06/17 Oxycodone Immediate Rel Tab (ROXICODONE IR) 5 Mg Tab 5 MG PO Q6H Y for Pain, #15 TAB Prov: Arden Veronica M.D. 09/06/17 Referrals Abhishek Randhawa M.D. (PCP) Forms Call Back Authorization, HOME CARE DOCUMENTATION FORM, IMPORTANT VISIT INFORMATION Patient Instructions ED [place], [facility], Shingles Herpes Zoster Additional Instructions Please return to the emergency department if you have worsening or recurrent symptoms not amenable to at-home treatment. Please call for a follow-up appointment with her primary care physician. Please take your medications as prescribed. If you have other concerns and/or complaints please feel free to also call your primary care physician's office or return the ED for further evaluation, management, and treatment. You received narcotic or benzodiazepene medication while in the emergency room today. This is an addictive medication that may cause drowziness as well as constipation. Do not drive, operate heavy machinery, or drink alcohol under the influence of this medication. If you still have discomfort you may take the narcotic medication. Please be advised that these medications are habit forming, can make you sleepy, and can cause breathing issues. Do not use if you require your full attention. Take only as prescribed. You may take 800 mg Ibuprofen every 6 hours as needed for pain/fever with food unless told by your physician not to take NSAIDs. You may take tylenol 1000 mg every 6 hours as needed for pain/fever unless told by your physician to not take it or have liver problems. You may take motrin and tylenol separately or at the same time. Take your medications as prescribed. You have been examined and treated today on an emergency basis only. This is not a substitute for, or an effort to provide, complete comprehensive medical care. It is impossible to recognize and treat all injuries or illnesses in a single emergency department visit. It is therefore important that you follow up closely with [facility], your PCP, and/or your specialist(s). Call as soon as possible for an appointment. Thank you for your time and consideration. I look forward to speaking with you again soon. Please don't hesitate to call us if you have any questions. Problem Qualifiers Primary Impression: Shingles rash Herpes zoster complications: without complications Qualified Codes: B02.9 - Zoster without complications
[2017-09-06] MEDS ORDERED: OXYCODONE HCL IR 5 MG TAB (IMMEDIATE RELEASE) PO STA (21:02)
[2017-09-06] MEDS ORDERED: ACETAMINOPHEN 500 MG TAB PO STA (21:02)
[2017-09-06] MEDS ORDERED: IBUPROFEN 600 MG TAB PO STA (21:02)
[2017-09-06] MEDS ORDERED: VITA1CAP5 PO (21:24)
[2017-09-06] MEDS ORDERED: CHOL400C7 PO (21:24)
[2017-09-06] MEDS ORDERED: NRN100 PO (21:39)
[2017-09-06] MEDS ORDERED: ARC10 PO (21:39)
[2017-09-06] MEDS ORDERED: ZLF/100 PO (21:39)
[2017-09-06] MEDS ORDERED: VALA1TAB31 PO (21:45)
[2017-09-06] MEDS ORDERED: OXYC1TAB3 PO (21:45)
[2017-09-06] MEDS ORDERED: HYDROmorphone INJ 0.5 MG/0.5 ML SYR IM STA (21:56)
[2017-09-06 22:40] VITALS: BP 142/88; PULSE 68; O2SAT 95
[2017-09-06] MEDS ORDERED: EMPTY 8 DRAM VIAL ONE (22:53)
[2017-09-06] MEDS ORDERED: OXYCODONE IR HOME PACK PO ONE (23:00)
[2017-09-06] MEDS ORDERED: ONDANSETRON HOME PACK 4MG OD TAB PO ONE (23:00)
== END 2017-09-06 23:02 | disposition home or self-care (01) ==
LOC: C.EDB 20:38
DX: B02.9 Zoster without complications (principal); E11.9 Type 2 diabetes mellitus without complications; I10 Essential (primary) hypertension; Z88.8 Allergy status to other drugs, medicaments and biological substances; Z91.041 Radiographic dye allergy status

== ENCOUNTER → 2017-11-23 | Outpatient (CLI) | payer OTHER, MEDICARE ==
[~2017-11-23] MED LIST changes: +ACET-1256 PO; +ARC10 PO; -CHOLTAB3 PO; -DONE5TAB26 PO; -GABA-112 PO; +GABA-113 PO; +LISI-730 PO; -LSN5 PO; -SERT50TA PO; +VITA1CAP5 PO; -VITA400C15 PO; +ZLF/100 PO
[2017-11-23 14:22] LABS: HEMOGLOBIN A1C 5.7 % (4.5-5.6)
== END | disposition home or self-care (01) ==
LOC: C.LABPBG 11:05
PROVIDERS: ATTEND Internal Medicine
DX: E03.9 Hypothyroidism, unspecified (principal); R73.01 Impaired fasting glucose